=== PATIENT | male | born 1980 | race African-American/Black ===

== ENCOUNTER 2017-01-06 00:48 | Emergency (ER) | payer SELFPAY ==
[2017-01-06 00:55] VITALS: TEMP 97.7
--- NOTE | 2017-01-06 00:56 | CPEKG ---
Heart Rate: 88 RR Interval: 682 P-R Interval: 148 QRSD Interval: 92 QT Interval: 360 QTC Interval: 436 P [place]: 44 QRS [place]: 62 T Wave [place]: 53 EKG Severity - NORMAL ECG - EKG Impression: SINUS RHYTHM EKG Impression: ST ELEV, PROBABLE NORMAL EARLY REPOL PATTERN Electronically Signed By: Jocelyn Cornejo 06-Jan-2017 22:46:27
[2017-01-06] MEDS ORDERED: NITROGLYCERIN 0.4 MG BTL SL ONE (01:09)
--- NOTE | 2017-01-06 01:10 | EDPHY ---
H & P Stated Complaint: midsternal CP/SOB Time Seen by Provider: 01/06/17 00:58 HPI/ROS: Chief Complaint: Chest pain HPI: 28-year-old male began having chest pain about an hour ago while walking around. Patient is homeless. Has had a recent episode in the past. Was seen at another hospital and discharged without any definitive diagnosis. Pain is described as a tightness in his upper chest. No aggravating or alleviating factors. No shortness of breath. It does not radiate. It is not exertional. It is not pleuritic. Is about a 7/10. ROS: 10 point Review of Systems is negative except as noted in the HPI. PMH: Denies Medications: None Allergies: No known drug allergies Social History: Positive smoking, daily alcohol, occasional marijuana Family History: No family history of coronary artery disease Physical Exam: Gen: Awake, Alert, No Distress HEENT: Nose: no rhinorrhea Eyes: PERRLA, EOMI Mouth: Moist mucosa Neck: Supple, no JVD Chest: nontender, lungs clear to auscultation Heart: S1, S2 normal, no murmur Abd: Soft, non-tender, no guarding Back: no CVA tenderness, no midline tenderness Ext: no edema, non-tender Skin: no rash Neuro: CN II-XII intact, Sensation grossly intact, Strength 5/5 in bilateral upper and lower extremities - Personal History Current Tetanus Diphtheria and Acellular Pertussis (TDAP): Yes - Medical/Surgical History Hx Asthma: No Hx Chronic Respiratory Disease: No Hx Diabetes: No Hx Cardiac Disease: No Hx Renal Disease: No Hx Cirrhosis: No Hx Alcoholism: No Hx HIV/AIDS: No Hx Splenectomy or Spleen Trauma: No Other PMH: Denies - Social History Smoking Status: Current every day smoker Constitutional: Initial Vital Signs Temperature (C) 36.5 C 01/06/17 00:53 Heart Rate 91 01/06/17 00:53 Respiratory Rate 16 01/06/17 00:53 Blood Pressure 136/87 H 01/06/17 00:53 O2 Sat (%) 95 01/06/17 00:53 O2 Delivery Mode Room Air Allergies/Adverse Reactions: No Known Allergies Allergy (Unverified 01/06/17 00:55) Home Medications: Medication Instructions Recorded NK [No Known Home Meds] 01/06/17 Medical Decision Making - Diagnostics EKG Interpretation: ECG time 12:54 a.m.: Sinus rhythm with a rate of 88, normal axis, normal intervals, there is ST elevation in V2 through V4 with up slow pattern which is consistent with early repolarization. There are no reciprocal changes. There are no old ECGs to compare. Imaging: I viewed and interpreted images myself ED Course/Re-evaluation: Patient with chest pain, normal ECG, normal chest x-ray. Serial troponin is negative, this is a 5 hour troponin status post onset of pain. Patient is resting comfortably. Pain-free here. Will discharge with follow-up as an outpatient. Return for worsening. - Data Points Laboratory Results: Laboratory Results 01/06/17 01:00 01/06/17 01:00 01/06/17 01/06/17 01/06/17 03:55 01:00 01:00 WBC 6.45 10^3/uL 10^3/uL (3.80-9.50) RBC 4.16 10^6/uL L 10^6/uL (4.40-6.38) Hgb 13.0 g/dL L g/dL (13.7-17.5) Hct 39.3 % L % (40.0-51.0) MCV 94.5 fL fL (81.5-99.8) MCH 31.3 pg pg (27.9-34.1) MCHC 33.1 g/dL g/dL (32.4-36.7) RDW 15.2 % % (11.5-15.2) Plt Count 230 10^3/uL 10^3/uL (150-400) MPV 9.8 fL fL (8.7-11.7) Neut % (Auto) 56.6 % % (39.3-74.2) Lymph % (Auto) 25.9 % % (15.0-45.0) [place] % (Auto) 14.9 % H % (4.5-13.0) Eos % (Auto) 1.2 % % (0.6-7.6) Baso % (Auto) 1.1 % % (0.3-1.7) Nucleat RBC Rel Count 0.0 % % (0.0-0.2) Absolute Neuts (auto) 3.65 10^3/uL 10^3/uL (1.70-6.50) Absolute Lymphs (auto) 1.67 10^3/uL 10^3/uL (1.00-3.00) Absolute Monos (auto) 0.96 10^3/uL H 10^3/uL (0.30-0.80) Absolute Eos (auto) 0.08 10^3/uL 10^3/uL (0.03-0.40) Absolute Basos (auto) 0.07 10^3/uL 10^3/uL (0.02-0.10) Absolute Nucleated RBC 0.00 10^3/uL 10^3/uL (0-0.01) Immature Gran % 0.3 % % (0.0-1.1) Immature Gran # 0.02 10^3/uL 10^3/uL (0.00-0.10) Sodium 139 mEq/L mEq/L (134-144) Potassium 3.7 mEq/L mEq/L (3.5-5.2) Chloride 102 mEq/L mEq/L (97-110) Carbon Dioxide 27 mEq/l mEq/l (22-31) Anion Gap 10 mEq/L mEq/L (8-16) BUN 13 mg/dL mg/dL (7-23) Creatinine 0.8 mg/dL mg/dL (0.7-1.3) Estimated GFR > 60 Glucose 85 mg/dL mg/dL (70-100) Calcium 9.2 mg/dL mg/dL (8.5-10.4) Troponin I < 0.012 ng/mL ng/mL < 0.012 ng/mL ng/mL (0-0.034) (0-0.034) Medications Given: Discontinued Medications Al Hydroxide/Mg Hydroxide (Maalox Susp) 30 ml PO ONCE ONE Stop: 01/06/17 01:43 Last Admin: 01/06/17 01:48 Dose: 30 ml Sodium Chloride (Ns) 1,000 mls @ 0 mls/hr IV ONCE ONE PRN Reason: Wide Open Stop: 01/06/17 01:38 Last Admin: 01/06/17 01:48 Dose: 1,000 mls Lidocaine (Lidocaine 2% Viscous) 15 ml PO ONCE ONE Stop: 01/06/17 01:43 Last Admin: 01/06/17 01:47 Dose: 15 ml Nitroglycerin (Nitrostat) 0.4 mg SL EDNOW ONE Stop: 01/06/17 01:10 Last Admin: 01/06/17 01:24 Dose: 0.4 mg Departure - Departure Disposition: Home, Routine, Self-Care Clinical Impression: Chest pain Condition: Good Instructions: Chest Pain (ED) Additional Instructions: Follow up with [facility] in 2-3 days for re-evaluation. Return emergency depart for increasing pain, chest shortness of breath, fevers, chills, or any other concerns. Referrals: Patient,NotPresent [Unknown] - As per Instructions [facility],. [Clinic] - As per Instructions
[2017-01-06 01:17] LABS: % IMMATURE GRANULYOCYTES 0.3 % (0.0-1.1); ABSOLUTE IMMATURE GRANULOCYTES 0.02 10^3/uL (0.00-0.10); ADD DIFF? NO; ADD MORPH? NO; ADD SCAN? YES; FRAGMENT RBC FLAG 0 (0-99); HEMATOCRIT 39.3 % (40.0-51.0); LEFT SHIFT FLG 0 (0-99); LIPEMIA HEMOLYSIS FLAG 80 (0-99); MEAN CELL HEMOGLOBIN 31.3 pg (27.9-34.1); MEAN CELL HEMOGLOBIN CONCENTR. 33.1 g/dL (32.4-36.7); MEAN CELL VOLUME 94.5 fL (81.5-99.8); MEAN PLATELET VOLUME 9.8 fL (8.7-11.7); PLATELET CLUMPS FLAG 0 (0-99); PLATELET COUNT 230 10^3/uL (150-400); RED BLOOD CELL COUNT 4.16 10^6/uL (4.40-6.38); RED CELL DISTRIBUTION WIDTH 15.2 % (11.5-15.2)
[2017-01-06 01:25] LABS: ANION GAP 10 mEq/L (8-16); CALCIUM 9.2 mg/dL (8.5-10.4); CARBON DIOXIDE 27 mEq/l (22-31); CHLORIDE 102 mEq/L (97-110); CREATININE 0.8 mg/dL (0.7-1.3); GLOMERULAR FILTRATION RATE > 60; GLUCOSE 85 mg/dL (70-100); POTASSIUM 3.7 mEq/L (3.5-5.2); SODIUM 139 mEq/L (134-144)
[2017-01-06 01:29] LABS: ATYPICAL LYMPHOCYTE FLAG 100 (0-99)
[2017-01-06 01:37] LABS: TROPONIN I < 0.012 ng/mL (0-0.034)
[2017-01-06] MEDS ORDERED: NS 1,000 ML IV ONE (01:37)
[2017-01-06] MEDS ORDERED: LIDOCAINE 2% VISCOUS 15 ML UDCUP PO ONE (01:42)
[2017-01-06] MEDS ORDERED: MAG HYDROX/AL HYDROX/SIMETH 30 ML UDCUP PO ONE (01:42)
[2017-01-06 01:45] LABS: SCAN NEGATIVE
[2017-01-06 04:53] VITALS: BP 129/88; PULSE 71; RESP 16; O2SAT 99
== END 2017-01-06 04:53 | disposition home or self-care (01) ==
DX: R07.89 Other chest pain (principal); F17.200 Nicotine dependence, unspecified, uncomplicated

== ENCOUNTER 2017-07-23 01:07 | Emergency (ER) | payer MEDICAID ==
--- NOTE | 2017-07-23 01:21 | CPEKG ---
Heart Rate: 79 RR Interval: 759 P-R Interval: 168 QRSD Interval: 94 QT Interval: 372 QTC Interval: 427 P [place]: 77 QRS [place]: 74 T Wave [place]: 62 EKG Severity - NORMAL ECG - EKG Impression: SINUS RHYTHM Electronically Signed By: Katharine Sahu 23-Jul-2017 07:39:12
[2017-07-23 02:00] LABS: % IMMATURE GRANULYOCYTES 0.2 % (0.0-1.1); ABSOLUTE IMMATURE GRANULOCYTES 0.02 10^3/uL (0.00-0.10); ADD DIFF? NO; ADD MORPH? NO; ADD SCAN? NO; ATYPICAL LYMPHOCYTE FLAG 20 (0-99); FRAGMENT RBC FLAG 0 (0-99); HEMATOCRIT 40.7 % (40.0-51.0); HEMOGLOBIN 14.2 g/dL (13.7-17.5); LEFT SHIFT FLG 0 (0-99); LIPEMIA HEMOLYSIS FLAG 90 (0-99); MEAN CELL HEMOGLOBIN 32.5 pg (27.9-34.1); MEAN CELL HEMOGLOBIN CONCENTR. 34.9 g/dL (32.4-36.7); MEAN CELL VOLUME 93.1 fL (81.5-99.8); MEAN PLATELET VOLUME 9.9 fL (8.7-11.7); PLATELET CLUMPS FLAG 0 (0-99); PLATELET COUNT 270 10^3/uL (150-400); RED BLOOD CELL COUNT 4.37 10^6/uL (4.40-6.38); RED CELL DISTRIBUTION WIDTH 13.7 % (11.5-15.2)
[2017-07-23 02:02] VITALS: O2SAT 96
[2017-07-23 02:19] LABS: ANION GAP 11 mEq/L (8-16); CALCIUM 8.8 mg/dL (8.5-10.4); CARBON DIOXIDE 24 mEq/l (22-31); CHLORIDE 102 mEq/L (97-110); CREATININE 0.8 mg/dL (0.7-1.3); GLOMERULAR FILTRATION RATE > 60; GLUCOSE 78 mg/dL (70-100); POTASSIUM 5.5 mEq/L (3.5-5.2); SODIUM 137 mEq/L (134-144)
[2017-07-23 02:21] LABS: SPECIMEN HEMOLYSIS 226
[2017-07-23 02:32] LABS: TROPONIN I 0.025 ng/mL (0.000-0.034)
--- NOTE | 2017-07-23 02:50 | EDPHY ---
H & P Stated Complaint: CP x90 minutes Time Seen by Provider: 07/23/17 01:08 HPI/ROS: HPI The patient presents brought in by ambulance for chest pain which began about an hour and half prior to presentation while at rest. He had an EKG in the field which was unremarkable. He says the chest pain is in his mid chest, is sharp in nature. He says he has had this pain before. It started slowly. He is not associated with any shortness of breath, nausea, vomiting, dizziness, diaphoresis. The patient is homeless and was recently at [facility]. He has a prior visit here in December for similar chest pain with a normal workup in doing troponins. He has no family history of ACS. He does admit to marijuana and alcohol use. Upon review of outside medical records, he does have a history of cocaine use and bipolar disorder. He was seen at an outside hospital a few days ago though did not meet criteria for mental health hold.. REVIEW OF SYSTEMS Constitutional: No fever, no chills. Eyes: No discharge. ENT: No sore throat. Cardiovascular: Positive for chest pain, no palpitations. Respiratory: No cough, no shortness of breath. Gastrointestinal: No abdominal pain, no vomiting. Genitourinary: No hematuria. Musculoskeletal: No back pain. Skin: No rashes. Neurological: No headache. PMHx: Schizophrenia Soc Hx: Homeless, history of drug use PHYSICAL General Appearance: Alert, no distress Eyes: Pupils equal and round no pallor or injection ENT, Mouth: Mucous membranes moist Respiratory: There are no retractions, lungs are clear to auscultation Cardiovascular: Regular rate and rhythm Gastrointestinal: Abdomen is soft and non-tender, no masses, bowel sounds normal Neurological: A&O, moves all extremities Skin: Warm and dry, no rashes Musculoskeletal: Neck is supple non tender Extremities: symmetrical, full range of motion Psychiatric: Patient is oriented X 3, there is no agitation Source: Patient, EMS, Old records Exam Limitations: No limitations - Personal History Current Tetanus/Diphtheria Vaccine: Yes - Medical/Surgical History Hx Asthma: No Hx Chronic Respiratory Disease: No Hx Diabetes: No Hx Cardiac Disease: No Hx Renal Disease: No Hx Cirrhosis: No Hx Alcoholism: No Hx HIV/AIDS: No Hx Splenectomy or Spleen Trauma: No Other PMH: bipolar, schizophrenia - Social History Smoking Status: Current some day smoker Constitutional: Initial Vital Signs Temperature (C) 36.8 C 07/23/17 01:10 Heart Rate 71 07/23/17 01:10 Respiratory Rate 18 07/23/17 01:10 Blood Pressure 139/101 H 07/23/17 01:10 O2 Sat (%) 97 07/23/17 01:10 O2 Delivery Mode Room Air Allergies/Adverse Reactions: No Known Allergies Allergy (Verified 07/23/17 01:19) Home Medications: Medication Instructions Recorded NK [No Known Home Meds] 01/06/17 Medical Decision Making - Diagnostics EKG Interpretation: EKG: Complete interpretation has been separately recorded in the [facility] archive. Summary impression: Normal sinus rhythm Imaging Results: Chest x-ray two view shows no cardiomegaly, no infiltrate, interpreted by me, radiology interpretation is pending. Imaging: I viewed and interpreted images myself Differential Diagnosis: 37-year-old male, homeless with mental health issues presents brought in by ambulance for chest pain. On exam, he is well-appearing and does not appear in any discomfort, EKG is unremarkable. Chest x-ray and basic laboratory testing including troponin were obtained and were normal. I doubt ACS at this time. Other possibilities include costochondritis or GERD. I doubt any serious cause of his pain. I think he can be discharged home and he is in agreement with this plan. - Data Points Laboratory Results: Laboratory Results 07/23/17 01:55 07/23/17 01:55 07/23/17 07/23/17 01:55 01:55 WBC 8.69 10^3/uL 10^3/uL (3.80-9.50) RBC 4.37 10^6/uL L 10^6/uL (4.40-6.38) Hgb 14.2 g/dL g/dL (13.7-17.5) Hct 40.7 % % (40.0-51.0) MCV 93.1 fL fL (81.5-99.8) MCH 32.5 pg pg (27.9-34.1) MCHC 34.9 g/dL g/dL (32.4-36.7) RDW 13.7 % % (11.5-15.2) Plt Count 270 10^3/uL 10^3/uL (150-400) MPV 9.9 fL fL (8.7-11.7) Neut % (Auto) 67.3 % % (39.3-74.2) Lymph % (Auto) 24.3 % % (15.0-45.0) [place] % (Auto) 7.6 % % (4.5-13.0) Eos % (Auto) 0.1 % L % (0.6-7.6) Baso % (Auto) 0.5 % % (0.3-1.7) Nucleat RBC Rel Count 0.0 % % (0.0-0.2) Absolute Neuts (auto) 5.85 10^3/uL 10^3/uL (1.70-6.50) Absolute Lymphs (auto) 2.11 10^3/uL 10^3/uL (1.00-3.00) Absolute Monos (auto) 0.66 10^3/uL 10^3/uL (0.30-0.80) Absolute Eos (auto) 0.01 10^3/uL L 10^3/uL (0.03-0.40) Absolute Basos (auto) 0.04 10^3/uL 10^3/uL (0.02-0.10) Absolute Nucleated RBC 0.00 10^3/uL 10^3/uL (0-0.01) Immature Gran % 0.2 % % (0.0-1.1) Immature Gran # 0.02 10^3/uL 10^3/uL (0.00-0.10) Sodium 137 mEq/L mEq/L (134-144) Potassium 5.5 mEq/L H mEq/L (3.5-5.2) Chloride 102 mEq/L mEq/L (97-110) Carbon Dioxide 24 mEq/l mEq/l (22-31) Anion Gap 11 mEq/L mEq/L (8-16) BUN 13 mg/dL mg/dL (7-23) Creatinine 0.8 mg/dL mg/dL (0.7-1.3) Estimated GFR > 60 Glucose 78 mg/dL mg/dL (70-100) Calcium 8.8 mg/dL mg/dL (8.5-10.4) Troponin I 0.025 ng/mL ng/mL (0.000-0.034) Specimen Hemolysis 226 Departure - Departure Disposition: Home, Routine, Self-Care Clinical Impression: Homelessness Chest pain Qualifiers: Chest pain type: unspecified Qualified Code(s): R07.9 - Chest pain, unspecified Condition: Good Instructions: Chest Pain (ED) Additional Instructions: [facility] in the next 1-2 days. Referrals: [facility],. [Clinic] - As per Instructions
[2017-07-23 03:25] VITALS: BP 131/74; PULSE 64; RESP 16; TEMP 97.5
== END 2017-07-23 03:25 | disposition home or self-care (01) ==
LOC: EDUNIT#
DX: R07.9 Chest pain, unspecified (principal); F17.200 Nicotine dependence, unspecified, uncomplicated; Z59.0 Homelessness

== ENCOUNTER 2017-11-05 02:26 | Emergency (ER) | payer MEDICAID ==
[2017-11-05 02:32] VITALS: TEMP 97.9
--- NOTE | 2017-11-05 02:32 | CPEKG ---
Heart Rate: 81 RR Interval: 741 P-R Interval: 160 QRSD Interval: 96 QT Interval: 360 QTC Interval: 418 P [place]: 77 QRS [place]: 74 T Wave [place]: 64 EKG Severity - ABNORMAL ECG - EKG Impression: SINUS RHYTHM EKG Impression: ST ELEVATION SUGGESTS PERICARDITIS Electronically Signed By: Logan Good 05-Nov-2017 05:26:23
[2017-11-05] MEDS ORDERED: MAG HYDROX/AL HYDROX/SIMETH 30 ML UDCUP PO ONE (02:43)
[2017-11-05] MEDS ORDERED: LIDOCAINE 2% VISCOUS 15 ML UDCUP PO ONE (02:43)
[2017-11-05 02:49] LABS: PLATELET COUNT 231 10^3/uL (150-400)
--- NOTE | 2017-11-05 02:51 | EDPHY ---
H & P Stated Complaint: CP/ETOH Time Seen by Provider: 11/05/17 02:29 HPI/ROS: Chief Complaint: Chest pain and burning HPI: 37-year-old male with a history of gastritis and chronic alcohol abuse presenting complaining of substernal chest pain which has been constant for the last 3 days. Patient thinks that is associated with his drinking alcohol. He has had similar episodes in the past. No cough. No shortness of breath. No fevers or chills. No aggravating or alleviating factors. He is requesting Antabuse to have pain with his alcohol consumption. Patient has been seen in the emergency department multiple times for similar complaints in the past. ROS: 10 point Review of Systems is negative except as noted in the HPI. PMH: Gastritis, depression Social History: No smoking, daily heavy alcohol, no recreational drug use Family History: non-contributory Physical Exam: Gen: Awake, Alert, No Distress, smells of alcohol HEENT: Nose: no rhinorrhea Eyes: PERRLA, EOMI Mouth: Moist mucosa Neck: Supple, no JVD Chest: nontender, lungs clear to auscultation Heart: S1, S2 normal, no murmur Abd: Soft, non-tender, no guarding Back: no CVA tenderness, no midline tenderness Ext: no edema, non-tender Skin: no rash Neuro: CN II-XII intact, Sensation grossly intact, Strength 5/5 in bilateral upper and lower extremities - Personal History Current Tetanus/Diphtheria Vaccine: Yes Current Tetanus Diphtheria and Acellular Pertussis (TDAP): Yes - Medical/Surgical History Hx Asthma: No Hx Chronic Respiratory Disease: No Hx Diabetes: No Hx Cardiac Disease: No Hx Renal Disease: No Hx Cirrhosis: No Hx Alcoholism: No Hx HIV/AIDS: No Hx Splenectomy or Spleen Trauma: No Other PMH: Denies - Social History Smoking Status: Current every day smoker Constitutional: Initial Vital Signs Temperature (C) 36.6 C 11/05/17 02:29 Heart Rate 84 11/05/17 02:29 Respiratory Rate 14 11/05/17 02:29 Blood Pressure 124/76 H 11/05/17 02:29 O2 Sat (%) 95 11/05/17 02:29 O2 Delivery Mode Room Air Allergies/Adverse Reactions: No Known Allergies Allergy (Verified 11/05/17 02:28) Home Medications: Medication Instructions Recorded NK [No Known Home Meds] 01/06/17 Medical Decision Making - Diagnostics EKG Interpretation: ECG time 2:29 a.m., sinus rhythm with a rate of 81, normal axis, normal intervals, no acute ST or T-wave changes. Impression: Normal ECG. ECG is unchanged compared to 1 on the 23 July 2017. ED Course/Re-evaluation: ECG is negative. Troponin is normal. 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 He is improved after GI cocktail. Will discharge him with follow up with [facility], return for any concerns. No evidence of acute ACS at this time. Patient has had multiple workups in the past for similar episodes all of which have been unremarkable. - Data Points Laboratory Results: Laboratory Results 11/05/17 02:30 11/05/17 02:30 11/05/17 11/05/17 02:30 02:30 WBC 5.98 10^3/uL 10^3/uL (3.80-9.50) RBC 4.69 10^6/uL 10^6/uL (4.40-6.38) Hgb 15.2 g/dL g/dL (13.7-17.5) Hct 44.1 % % (40.0-51.0) MCV 94.0 fL fL (81.5-99.8) MCH 32.4 pg pg (27.9-34.1) MCHC 34.5 g/dL g/dL (32.4-36.7) RDW 14.6 % % (11.5-15.2) Plt Count 231 10^3/uL 10^3/uL (150-400) MPV 10.1 fL fL (8.7-11.7) Neut % (Auto) 47.5 % % (39.3-74.2) Lymph % (Auto) 41.6 % % (15.0-45.0) [place] % (Auto) 8.4 % % (4.5-13.0) Eos % (Auto) 1.2 % % (0.6-7.6) Baso % (Auto) 1.3 % % (0.3-1.7) Nucleat RBC Rel Count 0.0 % % (0.0-0.2) Absolute Neuts (auto) 2.84 10^3/uL 10^3/uL (1.70-6.50) Absolute Lymphs (auto) 2.49 10^3/uL 10^3/uL (1.00-3.00) Absolute Monos (auto) 0.50 10^3/uL 10^3/uL (0.30-0.80) Absolute Eos (auto) 0.07 10^3/uL 10^3/uL (0.03-0.40) Absolute Basos (auto) 0.08 10^3/uL 10^3/uL (0.02-0.10) Absolute Nucleated RBC 0.00 10^3/uL 10^3/uL (0-0.01) Immature Gran % 0.0 % % (0.0-1.1) Immature Gran # 0.00 10^3/uL 10^3/uL (0.00-0.10) Sodium 146 mEq/L H mEq/L (135-145) Potassium 4.6 mEq/L mEq/L (3.5-5.2) Chloride 104 mEq/L mEq/L (97-110) Carbon Dioxide 24 mEq/l mEq/l (22-31) Anion Gap 18 mEq/L H mEq/L (8-16) BUN 19 mg/dL mg/dL (7-23) Creatinine 0.9 mg/dL mg/dL (0.7-1.3) Estimated GFR > 60 Glucose 77 mg/dL mg/dL (70-100) Calcium 9.4 mg/dL mg/dL (8.5-10.4) Troponin I < 0.012 ng/mL ng/mL (0.000-0.034) Medications Given: Discontinued Medications Al Hydroxide/Mg Hydroxide (Maalox Susp) 30 ml PO ONCE ONE Stop: 11/05/17 02:44 Last Admin: 18 02:54 Dose: 30 ml Lidocaine (Lidocaine 2% Viscous) 15 ml PO ONCE ONE Stop: 18 02:44 Last Admin: 11/05/17 02:54 Dose: 15 ml Departure - Departure Disposition: Home, Routine, Self-Care Clinical Impression: Gastritis Condition: Good Instructions: Gastritis (ED) Additional Instructions: May take [id number] antacid medications such as famotidine 4 year gastritis pain. Follow up at [facility] or the addiction recovery [facility] for help with her alcohol consumption. Referrals: [facility],. [Clinic] - As per Instructions [facility] Hours [Outside] - As per Instructions
[2017-11-05 03:19] VITALS: BP 105/64; PULSE 78; RESP 18; O2SAT 94
== END 2017-11-05 03:23 | disposition home or self-care (01) ==
LOC: EDUNIT#
DX: K29.70 Gastritis, unspecified, without bleeding (principal); F17.200 Nicotine dependence, unspecified, uncomplicated

== ENCOUNTER 2018-02-07 04:14 | Emergency (ER) | payer MEDICAID ==
[2018-02-07] MEDS ORDERED: NS 1,000 ML IV ONE (04:19)
--- NOTE | 2018-02-07 04:22 | EDPHY ---
H & P Stated Complaint: Chest pain x1 week, dizzu Time Seen by Provider: 02/07/18 04:20 HPI/ROS: HPI CHIEF COMPLAINT: Multiple complaints with changing in story HISTORY OF PRESENT ILLNESS: This is a 37-year-old male, he denies having any significant medical history he is homeless, [place] EMS went to go and assess him he was nowhere to be found he went across the street to a gas station to get something to eat. Approximately 40 min later he may contact with EMS again and states that he felt lightheaded like he was going to pass out. He initially told EMS that he had chest pain in the center of his chest sharp stabbing a week ago and that has not been present for week. However then he told them that was currently present. Upon arrival to the emergency room he denies having any chest pain he now tells me has a frontal headache. And feels lightheaded. Denies dizziness, denies neck pain, denies chest pain or shortness of breath, denies fever, denies vomiting. His main complaint now is lightheadedness and frontal throbbing headache. EMS reports that once they placed him on a stretcher to transport him here to the emergency room he fell asleep. He arrives in the emergency room sleeping on the stretcher and initially no complaints. Patient denies any significant medical history however upon review of ER records history of gastritis and GERD, history of bipolar disorder or schizophrenia and often presents emergency room with chest pain. Past Medical History: Per the patient Denies medical history per the record gastritis, GERD, bipolar disorder, schizophrenia, homelessness Past Surgical History: Denies surgical history Social History: Denies daily use of drugs alcohol or tobacco. He is homeless. Family History: Noncontributory ROS REVIEW OF SYSTEMS: A comprehensive 10 point review of systems is otherwise negative aside from elements mentioned in the history of present illness. Exam Constitutional nontoxic appearing, triage nursing summary reviewed, vital signs reviewed, awake/alert. Eyes normal conjunctivae and sclera, EOMI, PERRLA. HENT normal inspection, atraumatic, moist mucus membranes, no epistaxis, neck supple/ no meningismus, no raccoon eyes. Respiratory clear to auscultation bilaterally, normal breath sounds, no respiratory distress, no wheezing. Cardiovascular rate normal, regular rhythm, no murmur, no edema, distal pulses normal. Gastrointestinal soft, non-tender, no rebound, no guarding, normal bowel sounds, no distension, no pulsatile mass. Genitourinary no CVA tenderness. Musculoskeletal no midline vertebral tenderness, full range of motion, no calf swelling, no tenderness of extremities, no meningismus, good pulses, neurovascularly intact. Skin pink, warm, & dry, no rash, skin atraumatic. Neurologic awake, alert and oriented x 3, AAOx3, moves all 4 extremities equally, motor intact, sensory intact, CN II-XII intact, normal cerebellar, normal vision, normal speech. Psychiatric normal mood/affect. Heme/Lymph/Immune no lymphadenopathy. Differential Diagnosis: Includes but is not limited to in a particular order dehydration, electrolyte disturbance, hypoglycemia, infection, doubt cardiac disease, pneumonia, pneumothorax Medical Decision Making: Plan for this patient IV establishment full rn cardiac rehab obtain EKG and troponin, he denies any chest pain or shortness of breath here in the emergency room. Main complaint is lightheadedness and headache. Well hydrated with IV fluids. Check basic blood work and re- evaluate. Re-evaluation: EKG interpretation by me on record in [employer] system. Impression time of EKG 4:26 a.m. Sinus rhythm rate of [address] elevation or significant ST depression no acute ischemic change or signs of cardiac arrhythmia. When I compare this to his old EKG dated 01/06/2017 and 07/23/2017 this is unchanged morphology. 0452: Serum alcohol level 154. 0551: Patient is sleeping no acute distress. EKG interpretation by me on record in [facility] system. Impression time of EKG 6:35 a.m., sinus rhythm rate of 71. No acute ischemic change no ST elevation no ST depression no significant T-wave abnormalities unremarkable nonischemic EKG. Unchanged from previous EKG. 0647AM: Patient resting comfortably and sleeping. His repeat EKG is negative for acute ischemic disease process. As well as his repeat troponin is negative. He denies any chest pain or shortness of breath Source: Patient, EMS - Personal History Current Tetanus Diphtheria and Acellular Pertussis (TDAP): Unsure - Medical/Surgical History Hx Asthma: No Hx Chronic Respiratory Disease: No Hx Diabetes: No Hx Cardiac Disease: No Hx Renal Disease: No Hx Cirrhosis: No Hx Alcoholism: No Hx HIV/AIDS: No Hx Splenectomy or Spleen Trauma: No Other PMH: Denies - Social History Smoking Status: Current every day smoker Constitutional: Initial Vital Signs Temperature (C) 36.7 C 02/07/18 04:17 Heart Rate 69 02/07/18 04:17 Respiratory Rate 19 02/07/18 04:17 Blood Pressure 123/64 H 02/07/18 04:17 O2 Sat (%) 97 02/07/18 04:17 O2 Delivery Mode Room Air Allergies/Adverse Reactions: No Known Allergies Allergy (Verified 02/07/18 04:16) Home Medications: Medication Instructions Recorded NK [No Known Home Meds] 01/06/17 Medical Decision Making - Data Points Laboratory Results: Laboratory Results 02/07/18 04:20 02/07/18 04:20 02/07/18 02/07/18 02/07/18 06:35 04:43 04:20 WBC RBC Hgb Hct MCV MCH MCHC RDW Plt Count MPV Neut % (Auto) Lymph % (Auto) Pike % (Auto) Eos % (Auto) Baso % (Auto) Nucleat RBC Rel Count Absolute Neuts (auto) Absolute Lymphs (auto) Absolute Monos (auto) Absolute Eos (auto) Absolute Basos (auto) Absolute Nucleated RBC Immature Gran % Immature Gran # Sodium 149 mEq/L H mEq/L (135-145) Potassium 3.9 mEq/L mEq/L (3.3-5.0) Chloride 109 mEq/L mEq/L (97-110) Carbon Dioxide 25 mEq/l mEq/l (22-31) Anion Gap 15 mEq/L mEq/L (8-16) BUN 15 mg/dL mg/dL (7-23) Creatinine 0.9 mg/dL mg/dL (0.7-1.3) Estimated GFR > 60 Glucose 89 mg/dL mg/dL (70-100) Calcium 9.5 mg/dL mg/dL (8.5-10.4) Magnesium 1.9 mg/dL mg/dL (1.6-2.3) Total Bilirubin 0.5 mg/dL mg/dL (0.1-1.4) Conjugated Bilirubin 0.3 mg/dL mg/dL (0.0-0.5) Unconjugated Bilirubin 0.2 mg/dL mg/dL (0.0-1.1) AST 30 IU/L IU/L (17-59) ALT 29 IU/L IU/L (21-72) Alkaline Phosphatase 62 IU/L IU/L (38-126) POC Troponin I 0.00 ng/mL ng/mL 0.00 ng/mL ng/mL (0.00-0.08) (0.00-0.08) NT-Pro-B Natriuret Pep 23 pg/mL pg/mL (0-125) Total Protein 7.4 g/dL g/dL (6.3-8.2) Albumin 4.3 g/dL g/dL (3.5-5.0) Lipase 125 IU/L IU/L (23-300) Ethyl Alcohol 154 mg/dL H mg/dL (0-10) 02/07/18 04:20 WBC 5.62 10^3/uL 10^3/uL (3.80-9.50) RBC 4.42 10^6/uL 10^6/uL (4.40-6.38) Hgb 14.3 g/dL g/dL (13.7-17.5) Hct 42.2 % % (40.0-51.0) MCV 95.5 fL fL (81.5-99.8) MCH 32.4 pg pg (27.9-34.1) MCHC 33.9 g/dL g/dL (32.4-36.7) RDW 14.1 % % (11.5-15.2) Plt Count 230 10^3/uL 10^3/uL (150-400) MPV 9.7 fL fL (8.7-11.7) Neut % (Auto) 38.6 % L % (39.3-74.2) Lymph % (Auto) 45.2 % H % (15.0-45.0) Pike % (Auto) 10.7 % % (4.5-13.0) Eos % (Auto) 4.1 % % (0.6-7.6) Baso % (Auto) 1.2 % % (0.3-1.7) Nucleat RBC Rel Count 0.0 % % (0.0-0.2) Absolute Neuts (auto) 2.17 10^3/uL 10^3/uL (1.70-6.50) Absolute Lymphs (auto) 2.54 10^3/uL 10^3/uL (1.00-3.00) Absolute Monos (auto) 0.60 10^3/uL 10^3/uL (0.30-0.80) Absolute Eos (auto) 0.23 10^3/uL 10^3/uL (0.03-0.40) Absolute Basos (auto) 0.07 10^3/uL 10^3/uL (0.02-0.10) Absolute Nucleated RBC 0.00 10^3/uL 10^3/uL (0-0.01) Immature Gran % 0.2 % % (0.0-1.1) Immature Gran # 0.01 10^3/uL 10^3/uL (0.00-0.10) Sodium Potassium Chloride Carbon Dioxide Anion Gap BUN Creatinine Estimated GFR Glucose Calcium Magnesium Total Bilirubin Conjugated Bilirubin Unconjugated Bilirubin AST ALT Alkaline Phosphatase POC Troponin I NT-Pro-B Natriuret Pep Total Protein Albumin Lipase Ethyl Alcohol Medications Given: Discontinued Medications Sodium Chloride (Ns) 1,000 mls @ 0 mls/hr IV EDNOW ONE; Wide Open PRN Reason: Protocol Stop: 02/07/18 04:20 Last Admin: 02/07/18 04:26 Dose: 1,000 mls Point of Care Test Results: Chemistry 02/07/18 02/07/18 06:35 04:43 POC Troponin I 0.00 ng/mL ng/mL 0.00 ng/mL ng/mL (0.00-0.08) (0.00-0.08) Departure - Departure Disposition: Home, Routine, Self-Care Clinical Impression: Alcohol intoxication Qualifiers: Complication of substance-induced condition: uncomplicated Qualified Code(s): F10.920 - Alcohol use, unspecified with intoxication, uncomplicated Condition: Good Instructions: Alcohol Intoxication (ED), Abuse of Alcohol (ED) Additional Instructions: 1. Please stop drinking alcohol. Referrals: NONE *PRIMARY CARE P,. [Primary Care Provider] - As per Instructions
[2018-02-07 04:32] LABS: PLATELET COUNT 230 10^3/uL (150-400)
--- NOTE | 2018-02-07 06:36 | CPEKG ---
Heart Rate: 71 RR Interval: 845 P-R Interval: 168 QRSD Interval: 96 QT Interval: 376 QTC Interval: 409 P Lancaster: 60 QRS Lancaster: 77 T Wave Lancaster: 47 EKG Severity - NORMAL ECG - EKG Impression: SINUS RHYTHM Electronically Signed By: Kashif Lynch 08-Feb-2018 07:37:05
[2018-02-07 06:58] VITALS: BP 116/78
== END 2018-02-07 06:58 | disposition home or self-care (01) ==
LOC: EDUNIT#
DX: F10.920 Alcohol use, unspecified with intoxication, uncomplicated (principal); E86.9 Volume depletion, unspecified; F17.200 Nicotine dependence, unspecified, uncomplicated
CPT/HCPCS: 84484-PO; G0480

== ENCOUNTER 2018-03-16 01:32 | Emergency (ER) | payer MEDICAID ==
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
[2018-03-16 04:56] VITALS: BP 115/81
== END 2018-03-16 04:54 | disposition home or self-care (01) ==
LOC: EDUNIT#
DX: S09.90XA Unspecified injury of head, initial encounter (principal); F17.200 Nicotine dependence, unspecified, uncomplicated; Y04.8XXA Assault by other bodily force, initial encounter; Y92.521 Bus station as the place of occurrence of the external cause

== ENCOUNTER 2018-09-03 01:17 | Emergency (ER) | payer MEDICAID ==
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
[2018-09-03 03:07] VITALS: BP 141/99
--- NOTE | 2018-09-04 05:29 | CPEKG ---
Test Reason : OPEN Blood Pressure : / mmHG Vent. Rate : 064 BPM Atrial Rate : 064 BPM P-R Int : 153 ms QRS Dur : 086 ms QT Int : 405 ms P-R-T Axes : 043 075 051 degrees QTc Int : 418 ms Sinus rhythm Probable left ventricular hypertrophy Confirmed by Katharine Sahu ([id number]) on 09/04/2018 5:29:20 AM Referred By: Confirmed By:Katharine Sahu
== END 2018-09-03 03:07 | disposition home or self-care (01) ==
LOC: EDUNIT#
DX: R07.9 Chest pain, unspecified (principal)
CPT/HCPCS: 84484-ER

== ENCOUNTER 2018-09-04 01:21 | Emergency (ER) | payer MEDICAID ==
[2018-09-04 01:24] VITALS: BP 136/94
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
--- NOTE | 2018-09-04 05:30 | CPEKG ---
Test Reason : OPEN Blood Pressure : / mmHG Vent. Rate : 082 BPM Atrial Rate : 082 BPM P-R Int : 140 ms QRS Dur : 088 ms QT Int : 377 ms P-R-T Axes : 042 069 052 degrees QTc Int : 441 ms Sinus rhythm Confirmed by Katharine Sahu ([id number]) on 09/04/2018 5:30:13 AM Referred By: Confirmed By:Katharine Sahu
== END 2018-09-04 01:40 | disposition home or self-care (01) ==
LOC: EDUNIT#
DX: R07.9 Chest pain, unspecified (principal); Z59.0 Homelessness; F17.200 Nicotine dependence, unspecified, uncomplicated

== ENCOUNTER 2018-10-13 00:10 | Emergency (ER) | payer MEDICAID, OTHER ==
[2018-10-13 00:20] VITALS: BP 122/85
--- NOTE | 2018-10-13 00:20 | EDPHY ---
H & P Stated Complaint: etoh, refused by [facility] because he needs librium Time Seen by Provider: 10/13/18 00:20 HPI/ROS: HPI CHIEF COMPLAINT: Alcohol intoxication, needs Librium to go to detox HISTORY OF PRESENT ILLNESS: This is a 38-year-old male, presents emergency room with acute alcohol intoxication. He was refused at the detox center as they wanted him to come here to get Librium. He denies any medical complaints. He states been drinking alcohol tonight. Upon arrival his breath alcohol is 200. Blood sugar reported by EMS as 168. Past Medical History: Alcoholism hypertension Past Surgical History: No recent surgery Social History: homeless, daily alcohol use. Family History: Noncontributory ROS REVIEW OF SYSTEMS: 10 Systems were reviewed and negative with the exception of the elements mentioned in the history of present illness. Exam Constitutional smells of alcohol, intoxicated appears well nontoxic no acute distress, triage nursing summary reviewed, vital reviewed, awake/alert. Eyes normal conjunctivae and sclera, EOMI, PERRLA. HENT normal inspection, atraumatic, moist mucus membranes, no epistaxis, neck supple/ no meningismus, no raccoon eyes. Respiratory clear to auscultation bilaterally, normal breath sounds, no respiratory distress, no wheezing. Cardiovascular rate normal, regular rhythm, no murmur, no edema, distal pulses normal. Gastrointestinal soft, non-tender, no rebound, no guarding, normal bowel sounds, no distension, no pulsatile mass. Genitourinary no CVA tenderness. Musculoskeletal no midline vertebral tenderness, full range of motion, no calf swelling, no tenderness of extremities, no meningismus, good pulses, neurovascularly intact. Skin pink, warm, & dry, no rash, skin atraumatic. Neurologic awake, alert and oriented x 3, AAOx3, moves all 4 extremities equally, motor intact, sensory intact, CN II-XII intact, normal cerebellar, normal vision, normal speech. Psychiatric normal mood/affect. Heme/Lymph/Immune no lymphadenopathy. Differential Diagnosis: Includes but is not limited to in a particular order acute alcohol intoxication, medical clearance to get Librium to go to detox. Medical Decision Making: Plan for this patient breath alcohol. Patient's breath alcohol 198. blood sugar reported by EMS as 168 Re-evaluation: Librium with provided patient be transferred to the [facility]. Source: Patient, EMS - Personal History Current Tetanus Diphtheria and Acellular Pertussis (TDAP): Yes - Medical/Surgical History Hx Asthma: No Hx Chronic Respiratory Disease: No Hx Diabetes: No Hx Cardiac Disease: No Hx Renal Disease: No Hx Cirrhosis: No Hx Alcoholism: No Hx HIV/AIDS: No Hx Splenectomy or Spleen Trauma: No Other PMH: etoh,htn - Social History Smoking Status: Current every day smoker Constitutional: Initial Vital Signs Temperature (C) 37.1 C 10/13/18 00:17 Heart Rate 95 10/13/18 00:17 Respiratory Rate 18 10/13/18 00:17 Blood Pressure 122/85 H 10/13/18 00:17 O2 Sat (%) 97 10/13/18 00:17 O2 Delivery Mode Room Air Allergies/Adverse Reactions: peanut Allergy (Verified 10/13/18 00:16) Home Medications: Medication Instructions Recorded [facility] Med 10/13/18 Medical Decision Making - Data Points Medications Given: Discontinued Medications Chlordiazepoxide (Librium 25 Mg Prepack#6) 1 btl TAKEHOME EDNOW ONE Stop: 10/13/18 00:22 Last Admin: 10/13/18 00:24 Dose: 1 btl Departure - Departure Disposition: Home, Routine, Self-Care Clinical Impression: Alcoholic intoxication Qualifiers: Complication of substance-induced condition: uncomplicated Qualified Code(s): F10.920 - Alcohol use, unspecified with intoxication, uncomplicated Condition: Good Instructions: Alcohol Intoxication (ED), Abuse of Alcohol (ED) Additional Instructions: 1. Please stop drinking alcohol it is detrimental to your health. Referrals: NONE *PRIMARY CARE P,. [Primary Care Provider] - As per Instructions
[2018-10-13] MEDS ORDERED: CHLORDIAZEPOXIDE 25MG PREPK#6 BTL TAKEHOME ONE (00:21)
== END 2018-10-13 01:15 | disposition home or self-care (01) ==
LOC: EDUNIT#
DX: F10.920 Alcohol use, unspecified with intoxication, uncomplicated (principal); F17.200 Nicotine dependence, unspecified, uncomplicated; Z59.0 Homelessness

== ENCOUNTER 2018-10-31 22:59 | Emergency (ER) | payer MEDICAID ==
--- NOTE | 2018-10-31 23:18 | EDPHY ---
H & P Stated Complaint: ETOH Time Seen by Provider: 10/31/18 23:18 HPI/ROS: HPI CHIEF COMPLAINT: Alcohol Intoxication HISTORY OF PRESENT ILLNESS: Patient presents emergency room by EMS for acute alcohol intoxication. Patient arrives emergency room and unable to obtain any history due to how intoxicated he is. He smells of alcohol slurring speech. Unable obtain history review of systems. Past Medical History: Alcoholism and hypertension Past Surgical History: No recent surgical history Social History: Homeless, daily alcohol use. Family History: Noncontributory. ROS REVIEW OF SYSTEMS: Limited due to alcohol intoxication Exam Constitutional Intoxicated, triage nursing summary reviewed, vital signs reviewed, Sleepy, smells of alcohol Eyes normal conjunctivae and sclera, horizontal beating nystagmus consistent acute alcohol intoxication, otherwise pupils equal and react to light HENT normal inspection, atraumatic, moist mucus membranes, no epistaxis, neck supple/ no meningismus, no raccoon eyes. Respiratory clear to auscultation bilaterally, normal breath sounds, no respiratory distress, no wheezing. Cardiovascular rate normal, regular rhythm, no murmur, no edema, distal pulses normal. Gastrointestinal soft, non-tender, no rebound, no guarding, normal bowel sounds, no distension, no pulsatile mass. Genitourinary no CVA tenderness. Musculoskeletal no midline vertebral tenderness, full range of motion, no calf swelling, no tenderness of extremities, no meningismus, good pulses, neurovascularly intact. Skin pink, warm, & dry, no rash, skin atraumatic. Neurologic sleepy, intoxicated with alcohol,, alert and oriented x 3, AAOx3, moves all 4 extremities equally, motor intact, sensory intact, CN II-XII intact , , normal vision, normal speech. Psychiatric normal mood/affect. Heme/Lymph/Immune no lymphadenopathy. Differential Diagnosis: Includes but is not limited to in a particular order acute alcohol intoxication, alcohol abuse, dehydration, electrolyte abnormality , nausea vomiting from acute alcohol intoxication Medical Decision Making: Plan for this patient IV establishment IV fluid bolus , check basic blood work, electrolytes, alcohol level. Monitor for worsening condition monitor for sobriety. Re-evaluation: Serum alcohol 378. [id number] Patient re-evaluated Up and ambulatory to bathroom, clinically sober. Safe for d /c to arc. Source: Patient, EMS Exam Limitations: Intoxication - Personal History Current Tetanus Diphtheria and Acellular Pertussis (TDAP): Yes - Medical/Surgical History Hx Asthma: No Hx Chronic Respiratory Disease: No Hx Diabetes: No Hx Cardiac Disease: No Hx Renal Disease: No Hx Cirrhosis: No Hx Alcoholism: No Hx HIV/AIDS: No Hx Splenectomy or Spleen Trauma: No Other PMH: etoh,htn - Social History Smoking Status: Current every day smoker Constitutional: Initial Vital Signs Temperature (C) 36.4 C 10/31/18 23:06 Heart Rate 81 10/31/18 23:06 Respiratory Rate 16 10/31/18 23:06 O2 Sat (%) 94 10/31/18 23:06 O2 Delivery Mode Room Air O2 (L/minute) 3 Allergies/Adverse Reactions: peanut Allergy (Verified 10/13/18 00:16) Home Medications: Medication Instructions Recorded [facility] Med 10/13/18 Medical Decision Making - Data Points Laboratory Results: Laboratory Results 10/31/18 23:24 10/31/18 23:24 Medications Given: Discontinued Medications Sodium Chloride (Ns) 1,000 mls @ 0 mls/hr IV EDNOW ONE; Wide Open PRN Reason: Protocol Stop: 10/31/18 23:20 Last Admin: 10/31/18 23:44 Dose: 1,000 mls Sodium Chloride (Ns) 1,000 mls @ 0 mls/hr IV ONCE ONE PRN Reason: Wide Open Stop: 11/01/18 00:05 Last Admin: 11/01/18 01:00 Dose: 1,000 mls Departure - Departure Disposition: Home, Routine, Self-Care Clinical Impression: Alcoholic intoxication Qualifiers: Complication of substance-induced condition: uncomplicated Qualified Code(s): F10.920 - Alcohol use, unspecified with intoxication, uncomplicated Condition: Good Instructions: Alcohol Intoxication (ED), Abuse of Alcohol (ED) Referrals: Patient,NotPresent [Unknown] - As per Instructions
[2018-10-31] MEDS ORDERED: NS 1,000 ML IV ONE (23:19)
[2018-10-31 23:32] LABS: PLATELET COUNT 362 10^3/uL (150-400)
[2018-11-01] MEDS ORDERED: NS 1,000 ML IV ONE (00:04)
[2018-11-01 06:11] VITALS: BP 102/56
== END 2018-11-01 06:10 | disposition home or self-care (01) ==
LOC: EDUNIT#
DX: F10.920 Alcohol use, unspecified with intoxication, uncomplicated (principal); Y90.8 Blood alcohol level of 240 mg/100 ml or more; E86.9 Volume depletion, unspecified; F17.200 Nicotine dependence, unspecified, uncomplicated; I10 Essential (primary) hypertension; Z59.0 Homelessness
CPT/HCPCS: G0480

== ENCOUNTER 2018-11-02 22:59 | Emergency (ER) | payer MEDICAID ==
--- NOTE | 2018-11-02 23:03 | EDPHY ---
H & P Time Seen by Provider: 11/02/18 23:01 HPI/ROS: HPI CHIEF COMPLAINT: Alcohol Intoxication, low back pain. HISTORY OF PRESENT ILLNESS: Patient is a 38-year-old male, presents emergency room by EMS acutely intoxicated alcohol. He arrived him some extremely sleepy somewhat lethargic, slurring region smells of alcohol. He admits to drinking alcohol this evening. He also complains of low back pain. He is unsure when he developed this back pain. He is unsure if he had an injury or fall. He did any other complaints. Review of systems and history is somewhat limited due to acute alcohol intoxication. Blood sugar repeat 89 by EMS. Past Medical History: Alcohol daily alcohol use Past Surgical History: No recent surgery Social History: Pre homeless with daily alcohol use. Family History: Noncontributory ROS REVIEW OF SYSTEMS: Limited due to alcohol intoxication Exam Constitutional Intoxicated, triage nursing summary reviewed, vital signs reviewed, Sleepy, smells of alcohol Eyes normal conjunctivae and sclera, horizontal beating nystagmus consistent acute alcohol intoxication, otherwise pupils equal and react to light HENT normal inspection, atraumatic, moist mucus membranes, no epistaxis, neck supple/ no meningismus, no raccoon eyes. Respiratory clear to auscultation bilaterally, normal breath sounds, no respiratory distress, no wheezing. Cardiovascular rate normal, regular rhythm, no murmur, no edema, distal pulses normal. Gastrointestinal soft, non-tender, no rebound, no guarding, normal bowel sounds, no distension, no pulsatile mass. Genitourinary no CVA tenderness. Musculoskeletal no midline back pain on exam, no CVA tenderness on exam, no obvious sign of trauma on the back, no midline vertebral tenderness, full range of motion, no calf swelling, no tenderness of extremities, no meningismus, good pulses, neurovascularly intact. No leg weakness on exam. Skin pink, warm, & dry, no rash, skin atraumatic. Neurologic sleepy, intoxicated with alcohol,, alert and oriented x 3, AAOx3, moves all 4 extremities equally, motor intact, sensory intact, CN II-XII intact , , normal vision, normal speech. Psychiatric normal mood/affect. Heme/Lymph/Immune no lymphadenopathy. Differential Diagnosis: Includes but is not limited to in a particular order acute alcohol intoxication, alcohol abuse, dehydration, electrolyte abnormality , nausea vomiting from acute alcohol intoxication Medical Decision Making: Plan for this patient breath alcohol. Once sober re- evaluate him. Re-evaluation: Breath alcohol 229. 0500: PAtient ambulated well. clinically sober, nad. Patient sober, no complaints, denies back pain. Agrees for discharge. Source: Patient, EMS Exam Limitations: Intoxication - Medical/Surgical History Hx Asthma: No Hx Chronic Respiratory Disease: No Hx Diabetes: No Hx Cardiac Disease: No Hx Renal Disease: No Hx Cirrhosis: No Hx Alcoholism: No Hx HIV/AIDS: No Hx Splenectomy or Spleen Trauma: No Other PMH: etoh,htn - Social History Smoking Status: Current every day smoker Constitutional: Initial Vital Signs Temperature (C) 36.9 C 11/02/18 23:03 Heart Rate 95 11/02/18 23:03 Respiratory Rate 16 11/02/18 23:03 Blood Pressure 142/89 H 11/02/18 23:03 O2 Sat (%) 95 11/02/18 23:03 O2 Delivery Mode Room Air O2 (L/minute) 1 Allergies/Adverse Reactions: peanut Allergy (Verified 11/02/18 23:04) Home Medications: Medication Instructions Recorded NK [No Known Home Meds] 11/02/18 Departure - Departure Disposition: Home, Routine, Self-Care Clinical Impression: Alcoholic intoxication Qualifiers: Complication of substance-induced condition: uncomplicated Qualified Code(s): F10.920 - Alcohol use, unspecified with intoxication, uncomplicated Condition: Good Instructions: Alcohol Intoxication (ED), Abuse of Alcohol (ED) Referrals: NONE *PRIMARY CARE P,. [Primary Care Provider] - As per Instructions
[2018-11-03 05:49] VITALS: BP 101/46
== END 2018-11-03 06:00 | disposition home or self-care (01) ==
LOC: EDUNIT# → EDBD
DX: F10.920 Alcohol use, unspecified with intoxication, uncomplicated (principal); M54.5 Low back pain; F17.200 Nicotine dependence, unspecified, uncomplicated

== ENCOUNTER 2018-11-04 22:59 | Emergency (ER) | payer MEDICAID ==
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
[2018-11-05 01:10] VITALS: BP 130/89
--- NOTE | 2018-11-05 15:50 | ASMTCAGE ---
CAGE Additional Comments Patient presented to ED after hours. History of ETOH and homelessness. High risk screen completed Date Signed: 11/05/2018 03:49 PM Electronically Signed By:Carmela Louie RN
== END 2018-11-05 01:14 | disposition home or self-care (01) ==
LOC: EDUNIT#
DX: F10.920 Alcohol use, unspecified with intoxication, uncomplicated (principal); S09.90XA Unspecified injury of head, initial encounter; Z59.0 Homelessness; W01.10XA Fall on same level from slipping, tripping and stumbling with subsequent striking against unspecified object, initial encounter; Y92.9 Unspecified place or not applicable; Y93.9 Activity, unspecified; Y99.9 Unspecified external cause status

== ENCOUNTER 2018-11-14 01:14 | Emergency (ER) | payer MEDICAID, OTHER ==
[2018-11-14] MEDS ORDERED: NS 1,000 ML IV ONE (01:19)
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
[2018-11-14 01:59] LABS: PLATELET COUNT 160 10^3/uL (150-400)
[2018-11-14 06:32] VITALS: BP 107/75
--- NOTE | 2018-11-14 07:55 | CPEKG ---
Test Reason : OPEN Blood Pressure : / mmHG Vent. Rate : 095 BPM Atrial Rate : 095 BPM P-R Int : 139 ms QRS Dur : 087 ms QT Int : 348 ms P-R-T Axes : 039 031 054 degrees QTc Int : 438 ms Sinus rhythm Confirmed by Freedom Alves ([id number]) on 11/14/2018 7:55:08 AM Referred By: Freedom Alves Confirmed By:Freedom Alves
--- NOTE | 2018-11-14 07:55 | CPEKG ---
Test Reason : OPEN Blood Pressure : / mmHG Vent. Rate : 092 BPM Atrial Rate : 093 BPM P-R Int : 136 ms QRS Dur : 087 ms QT Int : 356 ms P-R-T Axes : 044 070 058 degrees QTc Int : 441 ms Sinus rhythm Confirmed by Freedom Alves ([id number]) on 11/14/2018 7:55:07 AM Referred By: Freedom Alves Confirmed By:Freedom Alves
== END 2018-11-14 06:43 | disposition home or self-care (01) ==
LOC: EDUNIT#
DX: F10.920 Alcohol use, unspecified with intoxication, uncomplicated (principal); F17.200 Nicotine dependence, unspecified, uncomplicated; E86.9 Volume depletion, unspecified
CPT/HCPCS: 84484-ER; G0480

== ENCOUNTER 2018-11-15 01:06 | Emergency (ER) | payer MEDICAID ==
[2018-11-15] MEDS ORDERED: NS 1,000 ML IV ONE (01:10)
--- NOTE | 2018-11-15 01:12 | EDPHY ---
H & P Time Seen by Provider: 11/15/18 01:11 HPI/ROS: HPI CHIEF COMPLAINT: Alcohol Intoxication, chest pain HISTORY OF PRESENT ILLNESS: This is a 38-year-old male, who I am very familiar with as I have seen multiple times in the emergency room over the past week for alcohol intoxication. In fact he was here last night for alcohol intoxication and chest pain. At that time was noted he was highly intoxicated with alcohol and had serial enzymes serial EKG without any abnormality. He was discharged after he sobered. He presents back to the emergency room tonight at 1:15 a.m. In the morning. He reports to me that he has been drinking liquor all day. Complains of chest pain. Nonspecific. When I evaluate him and review his old records very similar complaints as previously. Past Medical History: Alcoholism daily alcohol use. Hypertension. Past Surgical History: No recent surgical history Social History: Homeless with daily alcohol use. Family History: Noncontributory ROS REVIEW OF SYSTEMS: 10 Systems were reviewed and negative with the exception of the elements mentioned in the history of present illness. Exam Constitutional Intoxicated, triage nursing summary reviewed, vital signs reviewed, Sleepy, smells of alcohol Eyes normal conjunctivae and sclera, horizontal beating nystagmus consistent acute alcohol intoxication, otherwise pupils equal and react to light HENT normal inspection, atraumatic, moist mucus membranes, no epistaxis, neck supple/ no meningismus, no raccoon eyes. Respiratory clear to auscultation bilaterally, normal breath sounds, no respiratory distress, no wheezing. Cardiovascular rate normal, regular rhythm, no murmur, no edema, distal pulses normal. Gastrointestinal soft, non-tender, no rebound, no guarding, normal bowel sounds, no distension, no pulsatile mass. Genitourinary no CVA tenderness. Musculoskeletal no midline vertebral tenderness, full range of motion, no calf swelling, no tenderness of extremities, no meningismus, good pulses, neurovascularly intact. Skin pink, warm, & dry, no rash, skin atraumatic. Neurologic sleepy, intoxicated with alcohol,, alert and oriented x 3, AAOx3, moves all 4 extremities equally, motor intact, sensory intact, CN II-XII intact , , normal vision, normal speech. Psychiatric normal mood/affect. Heme/Lymph/Immune no lymphadenopathy. Differential Diagnosis: Includes but is not limited to in a particular order acute alcohol intoxication, alcohol abuse, dehydration, electrolyte abnormality , nausea vomiting from acute alcohol intoxication Medical Decision Making: Plan for this patient IV establishment IV fluid bolus , check serum alcohol level, basic blood work, EKG, troponin, environmental monitoring technician, pulse ox and re-evaluate. Re-evaluation: EKG interpretation by me on record in [employer] system. Impression time of EKG 1:19 a.m., sinus rhythm rate of 87, without signs of acute ischemia. Rule Early Repol pattern present. Similar to patient's previous EKG specifically the was done last night. Alcohol pending at this time. Troponin 0.00 EKG nonischemic. Serum alcohol level 319. EKG interpretation by me on record in [employer] system. Impression time of EKG 5:43 a.m., sinus rhythm rate of 84 without any signs of acute ischemia no ST elevation or ST depression unremarkable EKG. 5:40 a.m. Patient re-evaluated resting comfortably. No acute distress. Ambulated well throughout the emergency room without difficulty. Clinically sober. Answers questions appropriately. Highly recommend the patient refrain from drinking alcohol. Repeat troponin 0.00 ED x-ray chest one view: Negative for acute cardiopulmonary disease. Image interpreted by myself. 600 patient ambulated well no distress. No complaints. Sobered nicely here in the emergency room throughout the night. Source: Patient, EMS - Medical/Surgical History Hx Asthma: No Hx Chronic Respiratory Disease: No Hx Diabetes: No Hx Cardiac Disease: No Hx Renal Disease: No Hx Cirrhosis: No Hx Alcoholism: No Hx HIV/AIDS: No Hx Splenectomy or Spleen Trauma: No Other PMH: etoh,htn - Social History Smoking Status: Current every day smoker Constitutional: Initial Vital Signs Temperature (C) 36.7 C 11/15/18 01:11 Heart Rate 90 11/15/18 01:11 Respiratory Rate 16 11/15/18 01:11 Blood Pressure 138/103 H 11/15/18 01:11 O2 Sat (%) 95 11/15/18 01:11 O2 Delivery Mode Room Air Allergies/Adverse Reactions: peanut Allergy (Verified 11/15/18 01:45) Home Medications: Medication Instructions Recorded NK [No Known Home Meds] 11/02/18 Medical Decision Making - Data Points Laboratory Results: Laboratory Results 11/15/18 01:30 11/15/18 01:30 11/15/18 11/15/18 11/15/18 05:49 01:34 01:30 WBC RBC Hgb Hct MCV MCH MCHC RDW Plt Count MPV Neut % (Auto) Lymph % (Auto) Rabun % (Auto) Eos % (Auto) Baso % (Auto) Nucleat RBC Rel Count Absolute Neuts (auto) Absolute Lymphs (auto) Absolute Monos (auto) Absolute Eos (auto) Absolute Basos (auto) Absolute Nucleated RBC Immature Gran % Immature Gran # Sodium 144 mEq/L mEq/L (135-145) Potassium 4.2 mEq/L mEq/L (3.5-5.2) Chloride 109 mEq/L mEq/L (97-110) Carbon Dioxide 24 mEq/l mEq/l (22-31) Anion Gap 11 mEq/L mEq/L (6-14) BUN 19 mg/dL mg/dL (7-23) Creatinine 0.7 mg/dL mg/dL (0.7-1.3) Estimated GFR > 60 Glucose 88 mg/dL mg/dL (70-100) Calcium 8.8 mg/dL mg/dL (8.5-10.4) POC Troponin I Pending 0.00 ng/mL ng/mL (0.00-0.08) Ethyl Alcohol 319 mg/dL H mg/dL (0-10) 11/15/18 01:30 WBC 5.73 10^3/uL 10^3/uL (3.80-9.50) RBC 4.13 10^6/uL L 10^6/uL (4.40-6.38) Hgb 13.0 g/dL L g/dL (13.7-17.5) Hct 38.5 % L % (40.0-51.0) MCV 93.2 fL fL (81.5-99.8) MCH 31.5 pg pg (27.9-34.1) MCHC 33.8 g/dL g/dL (32.4-36.7) RDW 15.9 % H % (11.5-15.2) Plt Count 179 10^3/uL 10^3/uL (150-400) MPV 9.9 fL fL (8.7-11.7) Neut % (Auto) 44.3 % % (39.3-74.2) Lymph % (Auto) 43.1 % % (15.0-45.0) Rabun % (Auto) 7.7 % % (4.5-13.0) Eos % (Auto) 3.8 % % (0.6-7.6) Baso % (Auto) 0.9 % % (0.3-1.7) Nucleat RBC Rel Count 0.0 % % (0.0-0.2) Absolute Neuts (auto) 2.54 10^3/uL 10^3/uL (1.70-6.50) Absolute Lymphs (auto) 2.47 10^3/uL 10^3/uL (1.00-3.00) Absolute Monos (auto) 0.44 10^3/uL 10^3/uL (0.30-0.80) Absolute Eos (auto) 0.22 10^3/uL 10^3/uL (0.03-0.40) Absolute Basos (auto) 0.05 10^3/uL 10^3/uL (0.02-0.10) Absolute Nucleated RBC 0.00 10^3/uL 10^3/uL (0-0.01) Immature Gran % 0.2 % % (0.0-1.1) Immature Gran # 0.01 10^3/uL 10^3/uL (0.00-0.10) Sodium Potassium Chloride Carbon Dioxide Anion Gap BUN Creatinine Estimated GFR Glucose Calcium POC Troponin I Ethyl Alcohol Medications Given: Discontinued Medications Sodium Chloride (Ns) 1,000 mls @ 0 mls/hr IV EDNOW ONE; Wide Open PRN Reason: Protocol Stop: 11/15/18 01:11 Last Admin: 11/15/18 01:41 Dose: 1,000 mls Point of Care Test Results: Chemistry 11/15/18 01:34 POC Troponin I 0.00 ng/mL ng/mL (0.00-0.08) Departure - Departure Disposition: Home, Routine, Self-Care Clinical Impression: Alcoholic intoxication Qualifiers: Complication of substance-induced condition: uncomplicated Qualified Code(s): F10.920 - Alcohol use, unspecified with intoxication, uncomplicated Condition: Good Instructions: Alcohol Intoxication (ED), Abuse of Alcohol (ED) Referrals: Patient,NotPresent [Unknown] - As per Instructions
[2018-11-15 01:46] LABS: PLATELET COUNT 179 10^3/uL (150-400)
[2018-11-15 06:07] VITALS: BP 119/91
--- NOTE | 2018-11-19 08:55 | CPEKG ---
Test Reason : Blood Pressure : / mmHG Vent. Rate : 084 BPM Atrial Rate : 084 BPM P-R Int : 158 ms QRS Dur : 092 ms QT Int : 373 ms P-R-T Axes : 037 065 044 degrees QTc Int : 441 ms Sinus rhythm Confirmed by Kevin Pizano ([id number]) on 11/19/2018 8:54:57 AM Referred By: Freedom Alves Confirmed By:Kevin Pizano
== END 2018-11-15 06:07 | disposition home or self-care (01) ==
LOC: EDUNIT#
DX: R07.9 Chest pain, unspecified (principal); F10.920 Alcohol use, unspecified with intoxication, uncomplicated; I10 Essential (primary) hypertension; Y90.8 Blood alcohol level of 240 mg/100 ml or more; F17.200 Nicotine dependence, unspecified, uncomplicated
CPT/HCPCS: 84484-ER; G0480

== ENCOUNTER 2018-11-22 13:10 | Emergency (ER) | payer MEDICAID ==
[2018-11-22 13:19] VITALS: BP 148/111
--- NOTE | 2018-11-22 13:36 | EDPHY ---
HPI/HX/ROS/PE/MDM Narrative: CHIEF COMPLAINT: Food stuck in esophagus HISTORY OF PRESENT ILLNESS: The patient is a 38 y/o male with a history of hypertension complaining of pain in the throat and feeling like there is food stuck in the esophagus. After eating a few bites of sausage and vegetables about 45 minutes ago, he noticed pain in his throat, like "he had swallowed a nail". He tried drinking water, eating bread, and making himself vomit but his pain did not improve. He feels like there is something stuck in his esophagus at the base of his neck that hurts when he swallows. He denies any other associated symptoms. He denies history of similar symptoms. No fever, chills, chest pain, shortness of breath, palpitations, vomiting, diarrhea, urinary complaints, headache, lightheadedness. REVIEW OF SYSTEMS: A comprehensive 10 system review of systems is otherwise negative aside from elements mentioned in the history of present illness and medical decision making PAST MEDICAL HISTORY: Hypertension, alcohol abuse (last drink this morning) SOCIAL HISTORY: Homeless, medicaid patient, smoker VITAL SIGNS: Reviewed by me GENERAL: Well-developed, well-nourished, resting comfortably in no respiratory distress. HEENT: Atraumatic. Eyes: No icterus, no injection. Mouth: moist mucous membranes. Erythema to the back of the throat with some right tonsillar scrapping. No drooling. No vocal difficulties or abnormalities. Neck: supple with no adenopathy. LUNGS: Clear to auscultation bilaterally, no wheezes, rhonchi or rales. No stridor. CARDIAC: Regular rate and rhythm, no rubs, murmurs or gallops. ABDOMEN: Soft, nontender, nondistended, bowel sounds normal. BACK: No CVA tenderness. EXTREMITIES: No trauma. No edema. Range of motion is normal throughout. NEURO: Alert and oriented, grossly nonfocal. SKIN: Warm and dry, no rash. PSYCHIATRIC: Normal mentation, no agitation. ED Course: Study: X-ray of the throat Indication: Pain, food stuck in throat Results: X-ray of the throat was obtained. The results of the study are: negative for foreign object or mass The study was read by the radiologist, Dr. Whipple. I viewed the images myself on the PACS system. The patient presents for a feeling of food caught in the esophagus and pain with swallowing. About 45 minutes prior to arrival, he was eating sausage and vegetable when the pain began. He denies any other associated symptoms. On exam , he has some redness in the back of the throat and tonsillar scrapping. No drooling. No respiratory distress. Plan is for him to try drinking some pepsi and x-ray. 14:15 - The x-ray is negative for any foreign object or mass. The patient continues to be symptomatic. Plan for GI cocktail. 14:35 - The patient reports the GI cocktail helped him "75%". I feel he is safe for discharge with GI followup for continued symptoms. Follow up instructions and return precautions given. The patient agrees to this course of action. MDM: Diff dx considered included but not limited to foreign body in esophagus, food bolus, stricture, abrasion. - Data Points Imaging: I viewed and interpreted images myself Medications Given: Discontinued Medications Al Hydroxide/Mg Hydroxide (Maalox Susp) 30 ml PO ONCE ONE Stop: 11/22/18 13:38 Last Admin: 11/22/18 14:05 Dose: 30 ml Hyoscyamine Sulfate (Levsin, Hyomax-Sl) 0.25 mg PO ONCE ONE Stop: 11/22/18 13:38 Last Admin: 11/22/18 14:05 Dose: 0.25 mg Lidocaine (Lidocaine 2% Viscous) 15 ml PO ONCE ONE Stop: 11/22/18 13:38 Last Admin: 11/22/18 14:05 Dose: 15 ml General Time Seen by Provider: 11/22/18 13:24 Initial Vital Signs: Initial Vital Signs Temperature (C) 36.8 C 11/22/18 13:17 Heart Rate 90 11/22/18 13:17 Respiratory Rate 16 11/22/18 13:17 Blood Pressure 148/111 H 11/22/18 13:17 O2 Sat (%) 95 11/22/18 13:17 O2 Delivery Mode Room Air Allergies/Adverse Reactions: peanut Allergy (Verified 11/15/18 01:45) Home Medications: Medication Instructions Recorded NK [No Known Home Meds] 11/02/18 Departure - Departure Disposition: Home, Routine, Self-Care Clinical Impression: Esophageal foreign body Qualifiers: Encounter type: initial encounter Qualified Code(s): T18.108A - Unspecified foreign body in esophagus causing other injury, initial encounter Condition: Good Instructions: Esophageal Foreign Body (ED) Additional Instructions: For your throat discomfort, I suggested you start with a bland diet and advance as tolerated. This means start with bland foods such as bananas, rice, or toast. If you do not have any worsening of your symptoms, you may begin to resume a regular diet. You may obtain a bottle of Maalox or Mylanta at the grocery store and use that to coat the esophagus. This may help any tear to heal. If you continue to have pain with eating, developed vomiting, are unable to eat or drink secondary to feeling of obstruction, or have other concerns, please return to the emergency department or seek care urgently. You may follow up with a power line installer if you continued to be concerned regarding a swallowed foreign body. Referrals: Patient,NotPresent [Unknown] - As per Instructions Rob Spivey MD [Medical Doctor] - As per Instructions Report Scribed for: Diamante Grace Report Scribed by: Jenelle Toth Date of Report: 11/22/18 Time of Report: 14:39 Physician Review and Approval Statement: Portions of this note were transcribed by a manager medical device. I personally performed a history, physical exam, medical decision making, and confirmed accuracy of information the transcribed note.
[2018-11-22] MEDS ORDERED: HYOSCYAMINE SULFATE 0.125 MG TAB PO ONE (13:37)
[2018-11-22] MEDS ORDERED: MAG HYDROX/AL HYDROX/SIMETH 30 ML UDCUP PO ONE (13:37)
[2018-11-22] MEDS ORDERED: LIDOCAINE 2% VISCOUS 15 ML UDCUP PO ONE (13:37)
--- NOTE | 2018-11-22 18:46 | ASMTCMCOM ---
CM Note CM Note Notes: Pt presented to the ED via EMS for pain in his throat that started after eating a few bites of his lunch. This is the pt's 9th ED visit this year. The pt normally presents to the ED for chest pain and/or ETOH abuse. CM spoke w/pt at bedside and he said his last drink was this morning but overall the pt appears to be AxOx4 and not heavily intoxicated. Pt states he stays at the [facility] but has to stay at the [facility] because he still needs to complete his TB test. Pt states he did get the initial TB skin test but then went to snf so he was unable to followup with having it read. Pt encouraged to follow up with [facility]. Pt provided PC info and a list of their Homeless Drop In Hours: pt encouraged to present to [facility] tomorrow from 8-10am. Pt states he will followup then or at on Friday. Pt also provided a [facility] pamphlet and the local RN Elva Betancourt's card. Pt's current cell # [phone]. Pt is very pleasant and appreciative of assistance. Date Signed: 11/22/2018 06:45 PM Electronically Signed By:Pauline Selby RN
== END 2018-11-22 14:40 | disposition home or self-care (01) ==
LOC: EDUNIT#
DX: Z03.89 Encounter for observation for other suspected diseases and conditions ruled out (principal); I10 Essential (primary) hypertension; F10.10 Alcohol abuse, uncomplicated; Z59.0 Homelessness

== ENCOUNTER 2019-01-04 22:13 | Emergency (ER) | payer MEDICAID ==
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
[2019-01-04 22:31] VITALS: BP 131/78
== END 2019-01-04 22:36 | disposition home or self-care (01) ==
LOC: EDUNIT#
DX: Z76.5 Malingerer [conscious simulation] (principal); R07.9 Chest pain, unspecified; Z59.0 Homelessness

== ENCOUNTER 2019-01-18 01:46 | Emergency (ER) | payer MEDICAID ==
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
[2019-01-18 04:26] VITALS: BP 144/88
== END 2019-01-18 04:30 | disposition home or self-care (01) ==
LOC: EDUNIT#
DX: Z59.0 Homelessness (principal); Y04.0XXA Assault by unarmed brawl or fight, initial encounter; F10.129 Alcohol abuse with intoxication, unspecified; Y90.3 Blood alcohol level of 60-79 mg/100 ml; R51 Headache

== ENCOUNTER 2019-01-19 01:07 | Emergency (ER) | payer MEDICAID ==
--- NOTE | 2019-01-19 01:12 | EDPHY ---
H & P Time Seen by Provider: 01/19/19 01:09 HPI/ROS: HPI CHIEF COMPLAINT: Alcohol intoxication, back pain. HISTORY OF PRESENT ILLNESS: Patient is a 38-year-old male, very familiar to myself, presents emergency room acute alcohol intoxication. Is complaining of low back pain. No leg weakness, no saddle anesthesia. He states that he recently fell. Of note the patient was in the emergency room yesterday highly intoxicated with alcohol. Patient is homeless. Daily alcohol use. Past Medical History: Alcoholism daily alcohol use. Past Surgical History: No recent surgery Social History: Alcoholism, homeless, daily alcohol use. Family History: Noncontributory ROS REVIEW OF SYSTEMS: 10 Systems were reviewed and negative with the exception of the elements mentioned in the history of present illness. Exam Constitutional triage nursing summary reviewed, vital signs reviewed, awake/ alert. Eyes normal conjunctivae and sclera, EOMI, PERRLA. HENT normal inspection, atraumatic, moist mucus membranes, no epistaxis, neck supple/ no meningismus, no raccoon eyes. Respiratory clear to auscultation bilaterally, normal breath sounds, no respiratory distress, no wheezing. Cardiovascular rate normal, regular rhythm, no murmur, no edema, distal pulses normal. Gastrointestinal soft, non-tender, no rebound, no guarding, normal bowel sounds, no distension, no pulsatile mass. Genitourinary no CVA tenderness. Musculoskeletal lumbar spine evaluated, no midline significant pain. No crepitus. no midline vertebral tenderness, full range of motion, no calf swelling, no tenderness of extremities, no meningismus, good pulses, neurovascularly intact. Skin pink, warm, & dry, no rash, skin atraumatic. Neurologic awake, alert and oriented x 3, AAOx3, moves all 4 extremities equally, motor intact, sensory intact, CN II-XII intact, normal cerebellar, normal vision, normal speech. Psychiatric normal mood/affect. Heme/Lymph/Immune no lymphadenopathy. Differential Diagnosis: Includes but is not limited to in a particular order acute alcohol intoxication, lumbar fracture, lumbar strain. Medical Decision Making:Plan for this patient x-ray lumbar spine to evaluate for trauma. Re-evaluation: X-ray of the lumbar spine obtain. Normal alignment compression fracture. Image is visualized by myself. X-ray of the lumbar spine reviewed. Negative for acute fracture. Patient at 1: 54 a.m. Ambulated well throughout the emergency without difficulty. Steady gait. Can be disposition to the [facility]. 5:30 a.m. Patient ambulated well, sober. Safe for discharge. Has no complaints. Neurological exam unremarkable. No focal neuro deficit no leg weakness. Source: Patient, EMS - Personal History Tetanus Vaccine Date: 10 years - Medical/Surgical History Hx Asthma: No Hx Chronic Respiratory Disease: No Hx Diabetes: No Hx Cardiac Disease: No Hx Renal Disease: No Hx Cirrhosis: No Hx Alcoholism: No Hx HIV/AIDS: No Hx Splenectomy or Spleen Trauma: No Other PMH: etoh,htn - Social History Smoking Status: Current every day smoker Constitutional: Initial Vital Signs Temperature (C) 36.7 C 01/19/19 01:09 Heart Rate 64 01/19/19 01:09 Respiratory Rate 16 01/19/19 01:09 Blood Pressure 127/90 H 01/19/19 01:09 O2 Sat (%) 99 01/19/19 01:09 O2 Delivery Mode Room Air Allergies/Adverse Reactions: peanut Allergy (Verified 01/19/19 01:09) Home Medications: Medication Instructions Recorded NK [No Known Home Meds] 11/02/18 Departure - Departure Disposition: Home, Routine, Self-Care Clinical Impression: Alcoholic intoxication Qualifiers: Complication of substance-induced condition: uncomplicated Qualified Code(s): F10.920 - Alcohol use, unspecified with intoxication, uncomplicated Condition: Good Instructions: Alcohol Intoxication (ED) Referrals: Patient,NotPresent [Unknown] - As per Instructions
[2019-01-19 05:32] VITALS: BP 134/101
== END 2019-01-19 05:35 | disposition home or self-care (01) ==
LOC: EDUNIT#
DX: F10.920 Alcohol use, unspecified with intoxication, uncomplicated (principal); M54.5 Low back pain

== ENCOUNTER 2019-02-15 01:06 | Emergency (ER) | payer MEDICAID | END 2019-02-15 02:21 | disposition home or self-care (01) ==